=== PATIENT | male | born 1940 | race Caucasian/White ===

== ENCOUNTER 2017-10-05 17:58 | Emergency (ER) | payer MEDICARE, OTHER ==
[~2017-10-05] VITALS: Ht 175.3 cm; Wt 79.0 kg
[~2017-10-05 17:58] MED LIST: AMLO5TAB22 PO; ASPI81TA82 PO; ATOR10 PO; BIOT5000 PO; NIAC500T5 PO; OMEG100037 PO
[2017-10-05 18:01] VITALS: BP 144/72; PULSE 104; RESP 16; TEMP 98.6; O2SAT 95
--- NOTE | 2017-10-05 18:27 | PD ---
HPI Chief Complaint: Injury Time Seen by Provider: 18:22 Travel History International Travel<30 days: No Contact w/Intl Traveler<30days: No Traveled to known affect area: No History of Present Illness HPI 77-year-old male presents for evaluation of right foot pain. He reports a 1 week ago he was doing some casual stretching and rolling activities in his right foot because it felt stiff. He reports that he felt something "pop" in the middle of his foot. He reports that since then he developed some soreness which is just gradually gotten worse. Now over the past few days it is intensified which prompted evaluation. He describes now as an aching pain in the mid foot which is constant and worse when walking. He denies any other injuries and he has no other complaints at this time. PFS Past Medical History Heart Rhythm Problems: No Cancer: Yes (skin) Cardiovascular Problems: Yes (HTN) High Cholesterol: No Chemotherapy: No Chest Pain: No Congestive Heart Failure: No Diminished Hearing: No Endocrine: No Genitourinary: No Hypertension: Yes Immune Disorder: No Musculoskeletal: No Neurologic: No Psychiatric: No Reproductive: No Respiratory: No Radiation Therapy: No Seizures: Yes Past Surgical History Abdominal Surgery: No Cardiac Surgery: No Ear Surgery: No Endocrine Surgery: No Eye Surgery: No Genitourinary Surgery: No Gynecologic Surgery: No Oral Surgery: No Pacemaker: No Thoracic Surgery: No Other Surgery: Yes (herrera cancer removed) Social History Alcohol Use: No Tobacco Use: No Substance Use: No Allergies-Medications (Allergen,Severity, Reaction): Coded Allergies: No Known Allergies (Unverified Adverse Reaction, Unknown, 10/05/17) Reported Meds & Prescriptions Reported Meds & Active Scripts Active Walker with Front Wheels (Device) 1 Mis Mis Ea .ROUTE DIRECTED Reported Aspirin EC (Aspirin) 81 Mg Tabdr 81 Mg PO DAILY Hydrochlorothiazide 12.5 Mg Cap 12.5 Mg PO DAILY Enalapril (Enalapril Maleate) 10 Mg Tab 10 Mg PO DAILY Review of Systems General / Constitutional: No: Fever, Chills Musculoskeletal: Positive: Pain, No: Limited ROM Physical Exam Narrative GENERAL: Well-developed well-nourished male in no acute distress SKIN: Warm and dry. HEAD: Atraumatic. Normocephalic. EYES: Pupils equal and round. No scleral icterus. No injection or drainage. ENT: No nasal bleeding or discharge. Mucous membranes pink and moist. NECK: Trachea midline. No JVD. CARDIOVASCULAR: Regular rate and rhythm. No murmur appreciated. RESPIRATORY: No accessory muscle use. Clear to auscultation. Breath sounds equal bilaterally. MUSCULOSKELETAL: Tenderness to palpation of the dorsal aspect of the right foot diffusely. There is no obvious bony deformity. There is some nonspecific soft tissue swelling. No open wounds. 2+ dorsalis pedis and posterior tibial pulses. NEUROLOGICAL: Awake and alert. No obvious cranial nerve deficits. Motor grossly within normal limits. Normal speech. Data Data Last Documented VS Vital Signs Date Time Temp Pulse Resp B/P (MAP) Pulse Ox O2 Delivery O2 Flow Rate FiO2 10/05/17 18:01 98.6 104 16 144/72 (96) 95 Orders Orders Foot, Complete (Sal1ziz) (10/05/17 ) Ed Discharge Order (10/05/17 19:16) [facility] Medical Decision Making Medical Screen Exam Complete: Yes Emergency Medical Condition: Yes Medical Record Reviewed: Yes Differential Diagnosis Foot strain, fracture, gout, cellulitis Narrative Course 77-year-old male with right foot pain after feeling a "pop" in the center of his foot after doing casual stretching activities in his foot last week. On examination he has nonspecific soft tissue swelling with dorsal right foot with generalized tenderness to palpation of the dorsum of the right foot. X-ray imaging reveals no acute abnormalities. Based on the history is suspect that he has a strain in his right foot. He will be discharged with a walker. Recommend follow up closely with primary care physician. He is stable. Discharge. Diagnosis Primary Impression: Right foot strain Additional Instructions: Rest, walker as needed. Ice pack several times a day to the affected area 15 minutes at a time. Take Tylenol for pain. Follow-up with primary care physician in 2 weeks for recheck. Return for any emergent medical conditions. Med/Other Pt SpecificInfo: Prescription(s) given Scripts Walker with Front Wheels (Walker with Front Wheels) 1 Mis Mis EA .ROUTE DIRECTED, #1 0 Refills Prov: Cas Parker MD 10/05/17 Disposition: 01 DISCHARGE HOME Condition: Stable Delio Chaudhry Oct 05, 2017 18:27
[2017-10-05] MEDS ORDERED: ENAL10TA PO (18:42)
[2017-10-05] MEDS ORDERED: ASPI81TA23 PO (18:42)
[2017-10-05] MEDS ORDERED: HYDR12.57 PO (18:42)
--- NOTE | 2017-10-05 18:55 | RADRPT ---
EXAM DATE/TIME: 10/05/2017 18:30 [place] COMPARISON: No previous studies available for comparison. INDICATIONS : Right foot pain and swelling from unknown injury. MEDICAL HISTORY : None. SURGICAL HISTORY : None. ENCOUNTER: Initial ACUITY: 1 week PAIN SCORE: 10/10 LOCATION: Right foot. FINDINGS: Three view examination of the right foot demonstrates no soft tissue swelling, dislocation, or fractu re. The tarsal bones appear intact. The interphalangeal and metatarsophalangeal joints are intact. The calcaneus is intact. Bony mineralization is normal. CONCLUSION: Unremarkable examination of the right foot. Khadar Pratt Jr., MD on October 05, 2017 at 18:52 Board Certified Radiologist. This report was verified electronically.
[2017-10-05] MEDS ORDERED: WALKER WHEELS/F1 MIS (19:15)
== END 2017-10-05 19:33 | disposition home or self-care (01) ==
LOC: PHEFT 17:58
DX: S96.911A Strain of unspecified muscle and tendon at ankle and foot level, right foot, initial encounter (principal); I10 Essential (primary) hypertension; Z86.69 Personal history of other diseases of the nervous system and sense organs; Z85.828 Personal history of other malignant neoplasm of skin; X58.XXXA Exposure to other specified factors, initial encounter
CPT/HCPCS: 73630; 99282